=== PATIENT | male | born 1940 | race Caucasian/White ===

== ENCOUNTER → 2024-09-27 | Outpatient (CLI) | payer MEDICARE, BC, SELFPAY ==
[2024-09-27 13:09] LABS: Basophils % (Auto) 1 % (0-2.5); Eosinophils # (Auto) 0.1 Thou/mm3 (0.0-0.5); Eosinophils % (Auto) 2 % (0-10); Hematocrit 35.2 % (41.0-53.0); Hemoglobin 12.3 g/dL (13.5-16.0); Immature Granulocytes % (Auto) 1 % (0-0); Immature Granulocytes Auto 0.03 Thou/mm3 (0.00-0.00); Lymphocytes # (Auto) 1.1 Thou/mm3 (1.0-4.8); Lymphocytes % (Auto) 19 % (10-50); Mean Corpuscular HGB Conc 34.9 g/dl (31.0-37.0); Mean Corpuscular Hemoglobin 31.6 pg (25.0-35.0); Mean Corpuscular Volume 91 fL (80-100); Monocytes # (Auto) 0.5 Thou/mm3 (0.0-0.8); Monocytes % (Auto) 9 % (0-12); Neutrophils # (Auto) 3.9 Thou/mm3 (1.8-7.7); Neutrophils % (Auto) 70 % (37-80); Nucleated Red Blood Cell % 0 /100 WBC (0); Platelet Count 227 Thou/mm3 (140-440); RDW Standard Deviation 42.8 fL (35.1-43.9); Red Blood Count 3.89 Miln/mm3 (4.50-5.90); White Blood Count 5.7 Thou/mm3 (3.8-10.6)
[2024-09-27 13:18] LABS: Glucose Estimated Average 131 mg/dL (80-131); Hemoglobin A1C 6.2 % Hgb (4.8-6.0)
[2024-09-27 13:20] LABS: Prostate Specific Antigen 1.73 ng/mL (0-4.00)
[2024-09-27 13:23] LABS: Alanine Aminotransferase 12 U/L (10-49); Albumin, Serum 4.3 gm/dL (3.4-4.8); Alkaline Phosphatase 58 U/L (46-116); Anion Gap 6 (7-16); Aspartate Amino Transferase 16 U/L (0-34); BUN/Creatinine Ratio 13 Ratio (12-20); Bilirubin,Total 0.3 mg/dL (0.3-1.2); Blood Urea Nitrogen 17 mg/dL (9-23); Carbon Dioxide 26.7 mMol/L (20.0-31.0); Cardiac Risk Estimate 2.2 RATIO (4.0-6.7); Chloride 101 mMol/L (98-107); Cholesterol 91 mg/dL (132-200); Creatinine (Component) 1.3 mg/dL (0.6-1.3); Globulin 2.2 gm/dL (2.3-3.5); Glucose 121 mg/dL (74-106); HDL Cholesterol 42 mg/dL (40-60); LDL Cholesterol,Calculated 18 mg/dL (0-130); Osmolality,Calculated 270 (275-295); Potassium 4.7 mMol/L (3.4-5.1); Sodium 134 mMol/L (136-145); Total Protein 6.5 gm/dL (5.7-8.2); Triglycerides 154 mg/dL (30-150); eGFR 54 See Note
== END | disposition home or self-care (01) ==
LOC: COPL 11:45
PROVIDERS: PCP Family Medicine; Referring Provider Family Medicine; Visit Provider Family Medicine
DX: I10 Essential (primary) hypertension (principal); D50.8 Other iron deficiency anemias; E78.2 Mixed hyperlipidemia; N40.0 Benign prostatic hyperplasia without lower urinary tract symptoms; R79.9 Abnormal finding of blood chemistry, unspecified
CPT/HCPCS: 36415; 80053; 80061; 83036; 84153; 85025

== ENCOUNTER 2024-12-24 10:14 | Day surgery (SDC) | payer MEDICARE, BC, SELFPAY ==
[2024-12-21 11:48] LABS: Basophils # (Auto) 0.1 Thou/mm3 (0.0-0.2); Basophils % (Auto) 1 % (0-2.5); Eosinophils # (Auto) 0.1 Thou/mm3 (0.0-0.5); Eosinophils % (Auto) 2 % (0-10); Hematocrit 40.0 % (41.0-53.0); Hemoglobin 13.7 g/dL (13.5-16.0); Immature Granulocytes Auto 0.02 Thou/mm3 (0.00-0.00); Lymphocytes # (Auto) 1.4 Thou/mm3 (1.0-4.8); Lymphocytes % (Auto) 20 % (10-50); Mean Corpuscular HGB Conc 34.3 g/dl (31.0-37.0); Mean Corpuscular Hemoglobin 31.9 pg (25.0-35.0); Mean Corpuscular Volume 93 fL (80-100); Monocytes # (Auto) 0.7 Thou/mm3 (0.0-0.8); Monocytes % (Auto) 10 % (0-12); Neutrophils # (Auto) 4.7 Thou/mm3 (1.8-7.7); Neutrophils % (Auto) 67 % (37-80); Nucleated Red Blood Cell # 0.00 Thou/mm3 (0.00-0.00); Nucleated Red Blood Cell % 0 /100 WBC (0); Platelet Count 222 Thou/mm3 (140-440); RDW Standard Deviation 44.8 fL (35.1-43.9); Red Blood Count 4.29 Miln/mm3 (4.50-5.90); White Blood Count 7.0 Thou/mm3 (3.8-10.6)
[2024-12-21 12:01] LABS: Anion Gap 8 (7-16); BUN/Creatinine Ratio 11 Ratio (12-20); Blood Urea Nitrogen 16 mg/dL (9-23); Calcium 9.6 mg/dL (8.3-10.6); Carbon Dioxide 27.2 mMol/L (20.0-31.0); Chloride 102 mMol/L (98-107); Creatinine (Component) 1.4 mg/dL (0.6-1.3); Glucose 105 mg/dL (74-106); Osmolality,Calculated 275 (275-295); Potassium 4.8 mMol/L (3.4-5.1); Sodium 137 mMol/L (136-145); eGFR 49 See Note
[2024-12-21 12:02] LABS: INR 1.2 (0.9-1.3); Partial Thromboplastin Time 32.2 Seconds (22.0-36.0); Prothrombin Time 12.4 Seconds (9.0-12.2)
[2024-12-21 12:44] VITALS: BMI 27.8
[2024-12-24] VITALS (9 sets, daily range): BP systolic 132–173; BP diastolic 80–105; PULSE 46–66; RESP 12–23; TEMP 36.3; O2SAT 92–100; BMI 27.3
--- NOTE | 2024-12-24 13:18 | ESOP_ITS ---
RE: HAZEL PINA : 1940 DATE OF OPERATION: 12/24/2024 PROCEDURES PERFORMED: 1. Diagnostic left heart cardiac catheterization, selective coronary angiogram, left ventricular angiogram, bypass graft angiogram, CPT 62130. 2. Conscious sedation, one 30-minute duration. 3. Ultrasound-guided access of the right radial artery. DIAGNOSES: Coronary artery disease status post bypass surgery, stent placement and abnormal nuclear stress test. HISTORY AND INDICATIONS: The patient is an 84-year-old gentleman known to me with a history of coronary artery disease status post bypass graft surgery, stent in the ramus intermedius, doing well until recently. He has had recurrent shortness of breath. Nuclear scan showed persistent perfusion defect in the inferolateral segment. Coronary angiography was recommended. The patient is a candidate for coronary intervention and revascularization. DESCRIPTION OF PROCEDURE: The patient was brought to the cardiac catheterization laboratory. He was given 2 mg of Versed and 50 mcg of fentanyl for sedation. The right radial approach was taken. The right radial artery was cannulated by micropuncture technique. A 6-Singaporean Glidesheath was introduced. Selective right and left coronary angiogram was performed by FR4 diagnostic catheter and TIG 4 diagnostic catheter. Left heart catheterization and left ventricular angiogram were performed by TIG 4 diagnostic catheter. Subsequently, the left circumflex bypass graft was selectively cannulated using a 6-Singaporean AL1 diagnostic catheter. The patient tolerated the procedure well. No complications. Cardiac catheterization showed following findings: Hemodynamics: Left ventricular pressure was 110/10. Aortic pressure was 110/70. No gradient across the aortic valve. Left ventricular angiogram shows evidence of inferior wall posterior basilar akinesis. Moderate global hypokinesis. Ejection fraction is 45%. Coronary angiogram showed following findings: Right coronary artery is large and dominant, widely patent until distal RCA. The posterior descending artery is normal. Both posterolateral branches appear to be totally occluded. Left coronary system. Left main coronary artery is normal. Left anterior descending artery is totally occluded in the mid segment. Large ramus intermedius showed two stents, which are widely patent. Left circumflex artery is occluded in the distal segment. DEWITT to LAD is widely patent from the previous angiogram. Circumflex artery vein bypass graft is widely patent with filling excellent of the distal circumflex artery and posterolateral branches. SUMMARY OF FINDINGS AND SUGGESTIONS: 1. Severe multivessel coronary artery disease with widely patent DEWITT to LAD, circumflex artery vein graft to the circumflex artery, and occluded right coronary artery bypass graft. 2. Total occlusion of the posterolateral branch of the right coronary artery, possibly explaining the results of the nuclear scan. 3. Widely patent stents involving the ramus intermedius. 4. Widely patent saphenous vein graft to the circumflex. RECOMMENDATIONS: The patient is reassured with negative findings. Medical management will be continued. DT: 13:12:33 TT: 13:27:00 Ref: [id number] - TID: [id number] CC: ; ~ Dictated by:Kennedy Leal MD 12/24/24 1312 E-signed by: E-Signed by: E-Signed by: REPORT NO:[id number]
--- NOTE | 2024-12-24 13:29 | ESOP_ITS ---
RE: HAZEL PINA : 1940 DATE OF OPERATION: 12/24/2024 PROCEDURES PERFORMED: 1. Diagnostic left heart cardiac catheterization, selective coronary angiogram, left ventricular angiogram, bypass graft angiogram, CPT 22978. 2. Conscious sedation, one 30-minute duration. 3. Ultrasound-guided access of the right radial artery. DIAGNOSES: Coronary artery disease status post bypass surgery, stent placement and abnormal nuclear stress test. HISTORY AND INDICATIONS: The patient is an 84-year-old gentleman known to me with a history of coronary artery disease status post bypass graft surgery, stent in the ramus intermedius, doing well until recently. He has had recurrent shortness of breath. Nuclear scan showed persistent perfusion defect in the inferolateral segment. Coronary angiography was recommended. The patient is a candidate for coronary intervention and revascularization. DESCRIPTION OF PROCEDURE: The patient was brought to the cardiac catheterization laboratory. He was given 2 mg of Versed and 50 mcg of fentanyl for sedation. The right radial approach was taken. The right radial artery was cannulated by micropuncture technique. A 6-Beninese Glidesheath was introduced. Selective right and left coronary angiogram was performed by FR4 diagnostic catheter and TIG 4 diagnostic catheter. Left heart catheterization and left ventricular angiogram were performed by TIG 4 diagnostic catheter. Subsequently, the left circumflex bypass graft was selectively cannulated using a 6-Beninese AL1 diagnostic catheter. The patient tolerated the procedure well. No complications. Cardiac catheterization showed following findings: Hemodynamics: Left ventricular pressure was 110/10. Aortic pressure was 110/70. No gradient across the aortic valve. Left ventricular angiogram shows evidence of inferior wall posterior basilar akinesis. Moderate global hypokinesis. Ejection fraction is 45%. Coronary angiogram showed following findings: Right coronary artery is large and dominant, widely patent until distal RCA. The posterior descending artery is normal. Both posterolateral branches appear to be totally occluded. Left coronary system. Left main coronary artery is normal. Left anterior descending artery is totally occluded in the mid segment. Large ramus intermedius showed two stents, which are widely patent. Left circumflex artery is occluded in the distal segment. DEWITT to LAD is widely patent from the previous angiogram. Circumflex artery vein bypass graft is widely patent with filling excellent of the distal circumflex artery and posterolateral branches. SUMMARY OF FINDINGS AND SUGGESTIONS: 1. Severe multivessel coronary artery disease with widely patent DEWITT to LAD, circumflex artery vein graft to the circumflex artery, and occluded right coronary artery bypass graft. 2. Total occlusion of the posterolateral branch of the right coronary artery, possibly explaining the results of the nuclear scan. 3. Widely patent stents involving the ramus intermedius. 4. Widely patent saphenous vein graft to the circumflex. RECOMMENDATIONS: The patient is reassured with negative findings. Medical management will be continued. DT: 13:12:33 TT: 13:27:00 Ref: [id number] - TID: [id number]
--- NOTE | 2024-12-24 14:09 | PC.NURSE ---
1306 patient is awake, alert, breathing unlabored, s/p LHC by Dr. 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 1400 2ml air removed from TR band since hemostasis time was 1258, no bleeding or hematoma noted. 1402 Report given to Pastora DAWKINS, patient eating lunch tray.
== END 2024-12-24 15:41 | disposition home or self-care (01) ==
PROVIDERS: PCP Family Medicine; Referring Provider Internal Medicine Cardiovascular Disease; Visit Provider Internal Medicine Cardiovascular Disease
PROC: (CPT 93459; principal; 2024-12-24 11:30)
DX: I25.118 Atherosclerotic heart disease of native coronary artery with other forms of angina pectoris (principal); I48.91 Unspecified atrial fibrillation; I10 Essential (primary) hypertension; Z95.1 Presence of aortocoronary bypass graft
CPT/HCPCS: 93459; 36415; 80048; 85025; 85610; 85730; 99152; 99153; A4649; C1769; C1887; C1894; J0461; J1643; J2250; J2312; J2371; J3010; J3490; Q9967; J2305

== ENCOUNTER 2025-03-18 10:02 | Day surgery (SDC) | payer MEDICARE, BC, SELFPAY ==
--- NOTE | 2025-03-15 07:00 | EKG_ITS ---
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
[2025-03-15 10:38] LABS: Basophils # (Auto) 0.0 Thou/mm3 (0.0-0.2); Basophils % (Auto) 1 % (0-2.5); Eosinophils # (Auto) 0.1 Thou/mm3 (0.0-0.5); Eosinophils % (Auto) 2 % (0-10); Hematocrit 39.8 % (41.0-53.0); Hemoglobin 13.4 g/dL (13.5-16.0); Immature Granulocytes Auto 0.01 Thou/mm3 (0.00-0.00); Lymphocytes # (Auto) 1.0 Thou/mm3 (1.0-4.8); Lymphocytes % (Auto) 16 % (10-50); Mean Corpuscular HGB Conc 33.7 g/dl (31.0-37.0); Mean Corpuscular Hemoglobin 31.8 pg (25.0-35.0); Mean Corpuscular Volume 95 fL (80-100); Monocytes # (Auto) 0.5 Thou/mm3 (0.0-0.8); Monocytes % (Auto) 9 % (0-12); Neutrophils # (Auto) 4.5 Thou/mm3 (1.8-7.7); Neutrophils % (Auto) 72 % (37-80); Nucleated Red Blood Cell # 0.00 Thou/mm3 (0.00-0.00); Nucleated Red Blood Cell % 0 /100 WBC (0); Platelet Count 213 Thou/mm3 (140-440); RDW Standard Deviation 45.5 fL (35.1-43.9); Red Blood Count 4.21 Miln/mm3 (4.50-5.90); White Blood Count 6.2 Thou/mm3 (3.8-10.6)
[2025-03-15 10:47] LABS: INR 1.1 (0.9-1.3); Partial Thromboplastin Time 32.1 Seconds (22.0-36.0); Prothrombin Time 12.1 Seconds (9.0-12.2)
[2025-03-15 10:55] LABS: Anion Gap 8 (7-16); BUN/Creatinine Ratio 13 Ratio (12-20); Blood Urea Nitrogen 17 mg/dL (9-23); Calcium 9.7 mg/dL (8.3-10.6); Carbon Dioxide 27.3 mMol/L (20.0-31.0); Chloride 104 mMol/L (98-107); Creatinine (Component) 1.3 mg/dL (0.6-1.3); Glucose 77 mg/dL (74-106); Osmolality,Calculated 278 (275-295); Potassium 4.4 mMol/L (3.4-5.1); Sodium 139 mMol/L (136-145); eGFR 54 See Note
[2025-03-18] VITALS (9 sets, daily range): BP systolic 125–168; BP diastolic 65–110; PULSE 60–92; RESP 15–20; TEMP 36.5–36.7; O2SAT 94–100
--- NOTE | 2025-03-18 12:51 | XR_ITS ---
EXAMINATION: AP chest single view TECHNIQUE: AP semiupright portable chest single view Date and time: March 18, 2025, 1319 hours INDICATIONS: Postop pacemaker insertion FINDINGS: Unipolar ventricular cardiac lead satisfactory position No pneumothorax No significant cardiac enlargement No pneumonia or pulmonary edema IMPRESSION: Cardiac lead satisfactory position
[2025-03-18] MEDS: VANCOMYCIN/NS 500 MG IVPB 100 ML 100 MG IV (13:25)
--- NOTE | 2025-03-20 10:01 | ESOP_ITS ---
RE: HAZEL PINA : 1940 DATE OF OPERATION: 03/18/25 PROCEDURE PERFORMED: 1. Implantation of single chamber automatic implantable cardioverter defibrillator, CPT code 87260. 2. Conscious sedation. HISTORY AND INDICATIONS: The patient is an 84-year-old male with a past medical history of CAD, previous myocardial infarction, ischemic cardiomyopathy, and chronic systolic heart failure, ejection fraction was 25%. The patient remained congestive heart failure functional class II and ejection fraction 25%, high risk for sudden cardiac . Did not have any revascularization in more than 1 year. The patient continued to have shortness of breath and low ejection fraction, has ventricular dysrhythmias on cardiac monitoring as well as severe bradycardia, heart rate drops to 40. Symptomatic bradycardia as well as ventricular dysrhythmias. Nonsustained VT episodes. High risk for sudden cardiac , hence the patient is recommended to have ICD implantation for both mayela indication as well as prevention of sudden cardiac and episodes of nonsustained VT. PROCEDURE DETAILS: The patient was brought to the cardiac catheterization laboratory. He was given conscious sedation, 2 mg Versed for sedation, 100 mcg of fentanyl was given. Left subclavian area was prepared in sterile fashion and given 1% Xylocaine local anesthesia. Left subclavian vein was cannulated by micropuncture technique and a guidewire was introduced. A linear incision was made with a blunt dissection and a pocket was created. Hemostasis was secured. A 7-Bulgarian sheath was introduced in the subclavian vein and a high voltage right ventricular lead was advanced into the right ventricle apex, placed in the right ventricle apex. Active fixation was used and thresholds were excellent. After obtaining satisfactory thresholds, the lead was anchored to the pectoral fascia with 2-0 silk sutures. An [employer] [place] VR single chamber AICD generator was attached to the lead and was secured to the pectoral fascia with 2-0 silk sutures. Subcutaneous tissue closed using 2-0 chromic continuous sutures. Skin was closed using abilio. The patient tolerated the operation very well, no complications. The device is programmed to VVIR mode, mayela pace lower rate limit of 50 beats per minute. The patient remains in atrial fibrillation. SUMMARY: Successful implantation of single chamber single lead automatic implantable cardioverter defibrillator. COMPLICATIONS: None. The device details are as follows. The device is [employer] [place] VR, serial number is [id number]. The ventricle lead, RV lead is Durata 7-Bulgarian 7122Q and serial number is [id number]. The ventricular threshold is 0.5 volts, R waves 12 millivolts, lead impedance 530 ohms, shock impedance 72 ohms. cc: Orin Richey MD DT: 09:47:30 TT: 10:00:00 Ref: [id number] - TID: [id number]
== END 2025-03-18 15:02 | disposition home or self-care (01) ==
PROVIDERS: PCP Family Medicine; Referring Provider Internal Medicine Cardiovascular Disease; Visit Provider Internal Medicine Cardiovascular Disease
PROC: 0JH608Z Insertion of Defibrillator Generator into Chest Subcutaneous Tissue and Fascia, Open Approach (ICD-10-PCS; CPT 33249; principal; 2025-03-18 11:30)
DX: I47.20 Ventricular tachycardia, unspecified (principal); I48.91 Unspecified atrial fibrillation; I25.5 Ischemic cardiomyopathy; I50.22 Chronic systolic (congestive) heart failure; I25.10 Atherosclerotic heart disease of native coronary artery without angina pectoris; E78.00 Pure hypercholesterolemia, unspecified; Z95.1 Presence of aortocoronary bypass graft; I25.2 Old myocardial infarction; R00.1 Bradycardia, unspecified; Z01.810 Encounter for preprocedural cardiovascular examination
CPT/HCPCS: 33249; 36415; 80048; 85025; 85610; 85730; 93005; 99152; 99153; A4565; A4649; C1777; C1894; J0360; J0689; J0690; J2250; J3010; J3373; J3490